=== PATIENT | female | born 1970 | race African-American/Black ===

== ENCOUNTER → 2017-04-01 | Day surgery (SDC) | payer OTHER ==
[~2017-04-01] MED LIST: DICY10CA53 PO; ESOM40CA PO; IV RINGERS,LACTATED 1000ML 1,000 ML IV SCH; LOPE2CAP88 PO; PROPOFOL 20 ML IV ONE; PROPOFOL 40 ML IV ONE
--- NOTE | 2017-04-01 08:29 | PDOC2 ---
CONSULT Date of Consult Date of Consult DATE: 04/01/17 TIME: 08:25 Reason for Consult Reason for Consult: Abd pain/diarrhea/wt loss Identification/Chief Complaint Chief Complaint 46 yo Female with persistent abd pain and diarrhea is seen in further evaluation. Family history is positive for Crohns and colon cancer with her father. No melena and/or hematochezia is elicited. Weight is slowly dropping with poor appetite. With the continued issues, she requests further evaluation. Problems: Past Surgical History Past Surgical History: Tonsillectomy Family History Family History: Cancer (colon) Social History ALCOHOL: rare Current Medications Current Medications Current Medications Ringer's Solution 1,000 ml @ 50 mls/hr Q20H IV Last administered on 04/01/17t 07:30; Start 04/01/17 at 07:00; Stop 04/01/17 at 18:59 Propofol 20 ml @ As Directed STK-MED ONCE IV ; Start 04/01/17 at 08:22; Stop 04/01 at 08:23; Status DC Propofol 40 ml @ As Directed STK-MED ONCE IV ; Start 04/01/17 at 08:22; Stop 04/01 at 08:23; Status DC Active Scripts Active Reported Imodium A-D (Loperamide HCl) 2 Mg Capsule 2 Mg PO Nexium Capsule (Esomeprazole Magnesium) 40 Mg Capsule.dr 40 Mg PO DAILYAC Bentyl (Dicyclomine Hcl) 10 Mg Capsule 20 Mg PO QID Allergies Allergies: Coded Allergies: No Known Drug Allergies (Unverified , 04/01/17) Physical Exam General: Alert Lungs: Clear to auscultation Heart: Regular rate, Normal S1, Normal S2 Abdomen: Normal bowel sounds, Other (diffuse tendenress) Vitals VITALS Vital Signs Date Time Temp Pulse Resp B/P (MAP) Pulse Ox O2 Delivery O2 Flow Rate FiO2 04/01/17 07:25 97.3 78 20 97 97.3 Assessment/Plan Assessment/Plan Diffuse abd pain- with diarrhea. Etiology to be determined. IBD, malabsorption, and/or malignancy in differential. R/b of procedures discussed with patient who is willing to proceed. ELEAZAR HERNANDEZ MD Apr 01, 2017 08:29
[2017-04-01 09:30] VITALS: BP 108/69
--- NOTE | 2017-04-04 13:54 | PATHOLOGY ---
PATHOLOGY REPORT * * * * * * * * FINAL DIAGNOSIS: A. Duodenal biopsies: - Acute duodenitis with focal superficial erosion. B. Colon biopsies, transverse colon polyp: - Consistent with hyperplastic polyp/prominent fold. C. Random colon biopsies: - Diminutive tubular adenoma. (JPM:ryan;04/04/2017) COMMENT: A. Sections of the duodenal biopsy show foci of acute inflammation with focal superficial mucosal erosion. These findings are usually the result of peptic disease, NSAID's, ischemic states, or infections. Correlate clinically. B. Sections of the transverse colon biopsy reveal segments of colonic mucosa consistent with hyperplastic polyp/prominent fold. C. Sections of the random colon biopsy reveal multiple segments of colonic mucosa. There is no evidence of a chronic destructive colitis, lymphocytic colitis, or collagenous colitis. One of the biopsy segments reveals a diminutive tubular adenoma. (JPM:ryan;04/04/2017) REPORT ELECTRONICALLY SIGNED BY: Jeffrey Rankin M.D. DATE/TIME: 04/04/2017 13:53 * * * * * * * * GROSS PATHOLOGY: A. Received in formalin labeled "Katiuska Sepulveda, duodenal biopsy," are multiple segments of ellis soft tissue measuring 0.5 cm in aggregate dimensions and ranging from 0.1 to 0.2 cm in maximum dimension. The specimen is submitted entirely in cassette A1. B. Received in formalin labeled "Katiuska Sepulvdea, transverse colon polyp," are 2 segments of ellis soft tissue measuring 0.3 cm in aggregate dimensions and ranging from 0.1 to 0.2 cm in maximum dimension. The specimen is submitted entirely in cassette B1. C. Received in formalin labeled "Katiuska Sepulveda, random colon biopsy," are multiple segments of ellis soft tissue measuring 0.8 cm in aggregate dimensions and ranging from 0.1 to 0.3 cm in maximum dimension. The specimen is submitted entirely in cassette C1. (SNA; 04/01/2017) INITIAL CPT CODE(S): A; 24480 B; 87735 C; 06949 Professional services performed by [facility] at [address] [address] Technical services performed by [facility] at [address] [place] [address], [address], [place] [address]. SPECIMEN(S) RECEIVED: A.Duodenal biopsy B.Transverse colon polyp C.Random colon biopsy CLINICAL HISTORY: Abdominal pain PATIENT: KATIUSKA SEPULVEDA /AGE: 211/20/1970 (Age: 46) PATIENT #: [id number] ALT CASE #: SPECIMEN COLLECTION DATE: 04/01/2017 SPECIMEN RECEIVED DATE: 04/01/2017 [facility] - [address] [place] [address] - PHONE: [phone] * * * END OF REPORT * * *
== END | disposition home or self-care (01) ==
LOC: ENDOS 07:05
PROVIDERS: ATTEND Internal Medicine Gastroenterology
DX: K64.0 First degree hemorrhoids (principal); D12.3 Benign neoplasm of transverse colon; K29.50 Unspecified chronic gastritis without bleeding; K31.89 Other diseases of stomach and duodenum; K21.9 Gastro-esophageal reflux disease without esophagitis; F41.9 Anxiety disorder, unspecified; F32.9 Major depressive disorder, single episode, unspecified; F17.200 Nicotine dependence, unspecified, uncomplicated; Z72.89 Other problems related to lifestyle; Z72.0 Tobacco use
CPT/HCPCS: 43239; 45380; 45385; J2704

== ENCOUNTER → 2017-06-13 | Outpatient (CLI) | payer OTHER ==
[2017-04-01 09:30] VITALS: BP 108/69
[~2017-06-13] MED LIST changes: -IV RINGERS,LACTATED 1000ML 1,000 ML IV SCH; -PROPOFOL 20 ML IV ONE; -PROPOFOL 40 ML IV ONE
--- NOTE | 2017-06-13 13:18 | RAD ---
DATE: 06/13/2017 EXAM: DIGITAL DIAGNOSTIC LT, BREAST LEFT HISTORY: Left breast lump COMPARISON: 08/17/2016 This study was interpreted with the benefit of Computerized Aided Detection (CAD). The breast parenchyma is heterogeneously dense, which could reduce sensitivity of mammography. Breast parenchyma level C. FINDINGS: A marker was placed on the skin surface in the upper outer quadrant of the left breast in the area of reported palpable concern. The fibroglandular tissues in this patient are heterogeneous and nodular in character. No new or enlarging mammographic densities are seen. There are numerous microcalcifications in the left breast with the pattern suggesting a benign process, probably sclerosing adenosis. No suspicious microcalcifications have developed. Left breast ultrasound, 06/13/2017: A targeted ultrasound exam of the upper outer quadrant was performed. The patient pointed to an area of palpable concern at the 2-3:00 location. Just beneath the skin surface at this level, approximately 3 cm from the nipple, there is a 5 mm hypoechoic nodule with an echogenic hilum. Its margins are mildly lobulated. The features suggest a benign intramammary lymph node. We also scanned the 12:30 location which was described as an area of palpable concern on the order. Approximately 2 cm from the nipple there is a 7 x 4 x 3 mm hypoechoic nodule. It is wider than tall. Its margins are predominantly smooth. There is no definite posterior acoustic enhancement or shadowing. No color flow is seen within this nodule. It is probably a fibroadenoma or complicated cyst. Previous breast ultrasound studies have demonstrated nodularity in both breasts. IMPRESSION: 1. Heterogeneous, fibrocystic breasts. 2. Small nodule at the 2:30 location in the left breast with sonographic features most compatible with a benign intramammary lymph node. 3. Additional, probably benign nodule at the 12:30 location in the left breast as described above. 4. Follow-up left breast ultrasound in 6 months is suggested. BI-RADS CATEGORY: 3 PROBABLY BENIGN FINDING(S)-SHORT INTERVAL FOLLOW-UP SUGGESTED RECOMMENDED FOLLOW-UP: 6M 6 MONTH FOLLOW-UP PQRS compliance statement: Patient information was entered into a reminder system with a target due date for the next mammogram. Mammography is a sensitive method for finding small breast cancers, but it does not detect them all and is not a substitute for careful clinical examination. A negative mammogram does not negate a clinically suspicious finding and should not result in delay in biopsying a clinically suspicious abnormality. "Our facility is accredited by the [employer] Mammography Program."
== END | disposition home or self-care (01) ==
LOC: MAMMO 12:06
PROVIDERS: ATTEND Family Medicine
DX: N63 Unspecified lump in breast (principal); N60.12 Diffuse cystic mastopathy of left breast
CPT/HCPCS: 76641; G0206; 77065

== ENCOUNTER → 2017-12-19 | Outpatient (CLI) | payer OTHER | END | disposition home or self-care (01) | LOC: US 06:45 | DX: K76.89 Other specified diseases of liver (principal) | CPT/HCPCS: 76700 ==